=== PATIENT | male | born 1955 | race Caucasian/White ===

== ENCOUNTER 2022-01-11 22:19 | Emergency (ER) | payer MEDICARE, BC, OTHER ==
[~2022-01-11] VITALS: Ht 182.9 cm; Wt 82.6 kg
[2022-01-11] MEDS ORDERED: ASPI81TA31 PO (22:44)
[2022-01-11] MEDS ORDERED: LISINOPRIL PO (22:44)
[2022-01-11] MEDS ORDERED: ATOR10TA PO (22:44)
[2022-01-11 23:20] LABS: HEMATOCRIT 44.4 % (36.7-47.1); MEAN CORPUSCULAR HEMOGLOBIN 29.1 uug (23.8-33.4); MEAN CORPUSCULAR VOLUME 86.6 fL (73.0-96.2); PLATELET COUNT (AUTO) 176 K/uL (152-348)
[2022-01-11 23:57] LABS: CREATININE 0.9 mg/dL (0.6-1.3); POTASSIUM 3.9 mmol/L (3.5-5.1)
[2022-01-12 00:03] LABS: BILIRUBIN,TOTAL 0.5 mg/dL (0.2-1.0); TOTAL PROTEIN, SERUM 7.1 g/dL (6.4-8.2)
[2022-01-12] MEDS ORDERED: ACETAMINOPHEN ES 500 MG TABLET ONE (00:25)
[2022-01-12] MEDS ORDERED: LIDOCAINE 1%-EPI 1:100,000 20 ML VIAL IJ ONE (01:15)
[2022-01-12] MEDS ORDERED: IV NS 1000 ML 1,000 ML IV ONE (01:30)
--- NOTE | 2022-01-12 01:30 | NUR ---
EDMD ordered orthostatic vs.
--- NOTE | 2022-01-12 01:35 | NUR ---
orthostatics performed and reported to EDMD, he then ordered an IV and a 1L NS bolus. lyin/86, 75bpm sittin/84, 79 standin/86, 84 EDMD determined that pt is dehydrated and ordered fluids.
--- NOTE | 2022-01-12 03:30 | NUR ---
Pt given DC instructions and confirmed understanding of aftercare. Pt had great VS. Road tested by EDMD with steady gait. VSS, PE WNL. Pt signed out and ambulated out of dept with steady gait. Pt denies any sob, pain, nausea/vomiting, dizziness or discomfort. No s/sx of distress present.
[2022-01-12 07:21] VITALS: BP 123/82
== END 2022-01-12 03:45 | disposition home or self-care (01) ==
LOC: ER 22:26
DX: S01.01XA Laceration without foreign body of scalp, initial encounter (principal); E78.5 Hyperlipidemia, unspecified; Z88.8 Allergy status to other drugs, medicaments and biological substances; Z79.899 Other long term (current) drug therapy; W18.39XA Other fall on same level, initial encounter; Y93.89 Activity, other specified; Y92.89 Other specified places as the place of occurrence of the external cause; Y99.8 Other external cause status
CPT/HCPCS: 36415; 70030-TC; 70450; 85025; 93005; A4663; A9150; J7030